=== PATIENT | male | born 1980 | race Caucasian/White ===

== ENCOUNTER 2016-05-14 09:52 | Emergency (ER) | payer MEDICARE ==
--- NOTE | 2016-05-14 10:37 | EDDOCDS ---
Nurse's Notes [facility] Name: Adair Paige Age: 35 yrs Sex: Male : 1980 Arrival Date: 05/14/2016 Time: 09:52 Bed TR7 Private MD: BRENDEN AGUIAR Diagnosis: Urinary tract infection, site not specified Presentation: 05/14 09:55 Presenting complaint: Patient states: symptoms of shivers, freezing, pain in upper left srm leg since last night. has been antibiotics for months for UTI's and now off it and boom symptoms come back. had botox shots and it helped for awhile. Adult Sepsis Screening: The patient does not have new or worsening altered mentation. Patient's respiratory rate is less than 22. Systolic blood pressure is greater than 100. Patient has a qSOFA score of 0- Negative Sepsis Screen. Suicide/Homicide risk assessment- the patient denies having any suicidal and/or homicidal ideations and does not present with any other emotional, behavioral or mental health complaints. Status: Patient is not a client service manager or dependent. Transition of care: patient was not received from another setting of care. 09:55 Acuity: PETER Level 3 [facility] 09:55 Method Of Arrival: Wheelchair [facility] Triage Assessment: 09:59 General: Appears in no apparent distress, Behavior is appropriate for age, cooperative. srm Pain: Denies pain. HIV screening NA for this visit Offered previously. Historical: - Allergies: no known allergies; - Home Meds: 1. Gabapentin 1000 mg Oral four times a day 2. Crestor 10 mg Oral tab 1 tab once daily 3. warfarin 5 mg Oral tab 1 tab once daily mon - thurs 4. warfarin 10 mg Oral tab 1 tab once daily thu-thu 5. niacin 1,000 mg Oral Tb24 2 tabs nightly 6. 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 - Family history: Not pertinent. - : The pt / caregiver states he / she is on anticoagulants: coumadin. Home medication list is obtained from the patient. - Exposure Risk Screening:: None identified. Screenin:33 Screening information is obtained from the patient. Fall risk: No risks identified. srm Assistance ADL's: requires no assistance with activities of daily living. Abuse/DV Screen: The patient / caregiver reports he/she is: not in a situation that causes fear, pain or injury. Nutritional screening: No deficits noted. Advance Directives: There is no active DNR order. home support is adequate. Assessment: 10:33 General: Appears in no apparent distress, Behavior is appropriate for age, cooperative. srm Neurological: No deficits noted. Respiratory: No deficits noted. GI: No deficits noted. Derm: No deficits noted. Vital Signs: 09:54 BP 132 / 77; Pulse 120; Resp 18 S; Temp 97.1; Pulse Ox 94% on R/A; Weight 120.66 kg dd6 (R); Height 5 ft. 9 in. (175.26 cm) (R); 09:54 Body Mass Index 39.28 (120.66 kg, 175.26 cm) dd6 Vitals: 09:54 Log In Time: May 14, 2016 at 09:52. dd6 ED Course: 09:53 Patient visited by Jovon Herrera PCA. dd6 09:53 Patient moved to Waiting dd6 09:54 BRENDEN AGUIAR is Private Physician. dd6 09:55 Patient moved to Pre RCE dd6 09:57 Triage Initiated srm 10:00 Patient moved to Triage 2 srm 10:08 UA Sent. ct3 10:08 Urine Culture Sent. ct3 10:19 Ayanna Ramirez PA-C is PHCP. dt4 10:19 Niurka Arevalo MD is Attending Physician. dt4 10:19 Patient visited by Ayanna Ramirez PA-C. dt4 10:27 BRENDEN AGUIAR is Referral Physician. dt4 10:32 Patient moved to TR7 ct3 10:33 The patient / caregiver is instructed regarding the plan of care and ED course. srm Accompanied by Friend, Patient has correct armband on for positive identification. 10:33 No IV's were initiated during this patient's visit. No procedures done that require srm assistance. Order Results: Lab Order: UA; SPEC'M 05/14/16 10:08 Test: APPEARANCE, URINE; Value: HAZY; Range: CLEAR; Status: F Test: COLOR, URINE; Value: YELLOW; Range: YELLOW; Status: F Test: PH,URINE; Value: 7.0; Range: 5.0-9.0; Units: UNITS; Status: F Test: SPECIFIC GRAVITY URINE AUTO; Value: 1.027; Range: 1.002-1.035; Status: F Test: PROTEIN, URINE AUTO; Value: 1+; Range: NEGATIVE; Abnormal: Above high normal; Units: mg/dL; Status: F Test: GLUCOSE, URINE (UA) AUTO; Value: NEGATIVE; Range: NEGATIVE; Units: mg/dL; Status: F Test: KETONE, URINE AUTO; Value: NEGATIVE; Range: NEGATIVE; Units: mg/dL; Status: F Test: UROBILINOGEN, URINE AUTO; Value: 2.0; Range: 0.0-2.0; Abnormal: Above high normal; Units: mg/dL; Status: F Test: BILIRUBIN, URINE AUTO; Value: NEGATIVE; Range: NEGATIVE; Status: F Test: NITRITE, URINE AUTO; Value: NEGATIVE; Range: NEGATIVE; Status: F Test: LEUKOCYTE ESTERASE, URINE AUTO; Value: 1+; Range: NEGATIVE; Abnormal: Above high normal; Status: F Test: BLOOD, URINE BLOOD; Value: NEGATIVE; Range: NEGATIVE; Status: F Test: WBC, URINE AUTO; Value: 33; Range: 0-3; Abnormal: Above high normal; Units: /HPF; Status: F Test: RBC, URINE AUTO; Value: 3; Range: 0-3; Units: /HPF; Status: F Test: BACTERIA, URINE AUTO; Value: 1+; Range: NEGATIVE; Abnormal: Above high normal; Status: F Test: SQUAMOUS EPITHELIAL CELL UR AU; Value: 1; Range: 0-6; Units: /HPF; Status: F Test: MUCUS, URINE; Value: SMALL; Range: NEGATIVE; Status: F Test: HYALINE CAST, URINE AUTO; Value: 0; Range: 0-1; Units: /LPF; Status: F Outcome: 10:28 Discharge ordered by Provider. dt4 10:33 Discharge Assessment: Patient awake, alert and oriented x 3. No cognitive and/or srm functional deficits noted. Patient verbalized understanding of disposition instructions. patient administered narcotics - no. The following High Risk Discharge criteria are identified: None. Discharged to home via wheelchair, with friend. Condition: good Condition: stable. Discharge instructions given to patient, Instructed on discharge instructions, follow up and referral plans. medication usage, Demonstrated understanding of instructions, medications, Pt was receptive of discharge instructions/ teaching. Prescriptions given X 1. No special radiology studies were completed. Property sent home with patient. 10:35 Patient left the ED. srm Signatures: Judy Castro, RN RN Jovon Dunham, VISCOSITY INSPECTOR VISCOSITY INSPECTOR dd6 Marlena Slater, VISCOSITY INSPECTOR VISCOSITY INSPECTOR ct3 Ayanna Ramirez, PAJessicaC PA-C dt4 Corrections: (The following items were deleted from the chart) 10:00 09:59 PSHx: spunal fusion; srm srm MTDD
--- NOTE | 2016-05-14 10:37 | EDDOCDS ---
Physician Documentation [facility] Name: Adair Paige Age: 35 yrs Sex: Male : 1980 Arrival Date: 05/14/2016 Time: 09:52 Bed TR7 Private MD: BRENDEN AGUIAR Disposition: 05/14/16 10:28 Discharged to Home/Self Care. Impression: Urinary tract infection, site not specified. - Condition is Stable. - Discharge Instructions: Urinary Tract Infection. - Prescriptions for Macrobid 100 mg Oral Capsule - take 100 milligram by ORAL route every 12 hours for 10 days; 20 capsule. - Medication Reconciliation, Local Pharmacy Hours form. - Follow up: Emergency Department; When: As needed; Reason: Worsening of conditions. Follow up: BRENDEN AGUIAR; When: call office to ask about your shipment of antibiotics; Reason: Recheck today's complaints, Continuance of care. - Problem is new. - Symptoms are unchanged. Historical: - Allergies: no known allergies; - Home Meds: 1. Gabapentin 1000 mg Oral four times a day 2. Crestor 10 mg Oral tab 1 tab once daily 3. warfarin 5 mg Oral tab 1 tab once daily thu - 4. warfarin 10 mg Oral tab 1 tab once daily thu-thu 5. niacin 1,000 mg Oral Tb24 2 tabs nightly 6. 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 - Family history: Not pertinent. - : The pt / caregiver states he / she is on anticoagulants: coumadin. Home medication list is obtained from the patient. - Exposure Risk Screening:: None identified. Vital Signs: 05/14 09:54 BP 132 / 77; Pulse 120; Resp 18 S; Temp 97.1; Pulse Ox 94% on R/A; Weight 120.66 kg / dd6 266.01 lbs (R); Height 5 ft. 9 in. (175.26 cm) (R); 09:54 Body Mass Index 39.28 (120.66 kg, 175.26 cm) dd6 MDM: 10:03 Urine Culture Ordered. EDMS 10:03 UA Ordered. EDMS 10:33 Financial registration complete. lg Signatures: Dispatcher [employer] Judy Evans RN RN srm Ava Degroot, Reg Reg lg Ayanna Ramirez PA-C PA-C dt4 The chart was reviewed and I authenticate all verbal orders and agree with the evaluation and treatment provided.Corrections: (The following items were deleted from the chart) 10:00 09:59 PSHx: spunal fusion; srm srm MTDD
--- NOTE | 2016-05-16 11:36 | EDDOCDS ---
Physician Documentation [facility] Name: Adair Paige Age: 35 yrs Sex: Male : 1980 Arrival Date: 05/14/2016 Time: 09:52 Bed TR7 Private MD: BRENDEN AGUIAR Disposition: 05/14/16 10:28 Discharged to Home/Self Care. Impression: Urinary tract infection, site not specified. - Condition is Stable. - Discharge Instructions: Urinary Tract Infection. - Prescriptions for Macrobid 100 mg Oral Capsule - take 100 milligram by ORAL route every 12 hours for 10 days; 20 capsule. - Medication Reconciliation, Local Pharmacy Hours form. - Follow up: Emergency Department; When: As needed; Reason: Worsening of conditions. Follow up: BRENDEN AGUIAR; When: call office to ask about your shipment of antibiotics; Reason: Recheck today's complaints, Continuance of care. - Problem is new. - Symptoms are unchanged. Historical: - Allergies: no known allergies; - Home Meds: 1. Gabapentin 1000 mg Oral four times a day 2. Crestor 10 mg Oral tab 1 tab once daily 3. warfarin 5 mg Oral tab 1 tab once daily thu - 4. warfarin 10 mg Oral tab 1 tab once daily thu-thu 5. niacin 1,000 mg Oral Tb24 2 tabs nightly 6. 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 - Family history: Not pertinent. - : The pt / caregiver states he / she is on anticoagulants: coumadin. Home medication list is obtained from the patient. - Exposure Risk Screening:: None identified. Vital Signs: 05/14 09:54 BP 132 / 77; Pulse 120; Resp 18 S; Temp 97.1; Pulse Ox 94% on R/A; Weight 120.66 kg / dd6 266.01 lbs (R); Height 5 ft. 9 in. (175.26 cm) (R); 09:54 Body Mass Index 39.28 (120.66 kg, 175.26 cm) dd6 MDM: 10:03 Urine Culture Ordered. EDMS 10:03 UA Ordered. EDMS 10:33 Financial registration complete. lg 12:03 [facility] Payment Agreement was scanned into [employer] and attached to record. lg 15:01 T-Sheet-- Draft Copy was scanned into [employer] and attached to record. gb Signatures: Dispatcher [employer] EDMS Judy Castro RN RN srm Mary Aldridge, Reg Reg gb Ava Degroot, Reg Reg lg Ayanna Ramirez, THAI ANDRE dt4 The chart was reviewed and I authenticate all verbal orders and agree with the evaluation and treatment provided.Corrections: (The following items were deleted from the chart) 10:00 09:59 PSHx: spunal fusion; srm srm Attachments: 12:03 [facility] Payment Agreement lg 15:01 T-Sheet-- Draft Copy gb Chart Complete MTDD
--- NOTE | 2016-05-16 11:36 | EDDOCDS ---
Nurse's Notes [facility] Name: Adair Paige Age: 35 yrs Sex: Male : 1980 Arrival Date: 05/14/2016 Time: 09:52 Bed TR7 Private MD: BRENDEN AGUIAR Diagnosis: Urinary tract infection, site not specified Presentation: 05/14 09:55 Presenting complaint: Patient states: symptoms of shivers, freezing, pain in upper left srm leg since last night. has been antibiotics for months for UTI's and now off it and boom symptoms come back. had botox shots and it helped for awhile. Adult Sepsis Screening: The patient does not have new or worsening altered mentation. Patient's respiratory rate is less than 22. Systolic blood pressure is greater than 100. Patient has a qSOFA score of 0- Negative Sepsis Screen. Suicide/Homicide risk assessment- the patient denies having any suicidal and/or homicidal ideations and does not present with any other emotional, behavioral or mental health complaints. Status: Patient is not a public address servicer or dependent. Transition of care: patient was not received from another setting of care. 09:55 Acuity: PETER Level 3 [facility] 09:55 Method Of Arrival: Wheelchair [facility] Triage Assessment: 09:59 General: Appears in no apparent distress, Behavior is appropriate for age, cooperative. srm Pain: Denies pain. HIV screening NA for this visit Offered previously. Historical: - Allergies: no known allergies; - Home Meds: 1. Gabapentin 1000 mg Oral four times a day 2. Crestor 10 mg Oral tab 1 tab once daily 3. warfarin 5 mg Oral tab 1 tab once daily mon - thurs 4. warfarin 10 mg Oral tab 1 tab once daily thu-thu 5. niacin 1,000 mg Oral Tb24 2 tabs nightly 6. 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 - Family history: Not pertinent. - : The pt / caregiver states he / she is on anticoagulants: coumadin. Home medication list is obtained from the patient. - Exposure Risk Screening:: None identified. Screenin:33 Screening information is obtained from the patient. Fall risk: No risks identified. srm Assistance ADL's: requires no assistance with activities of daily living. Abuse/DV Screen: The patient / caregiver reports he/she is: not in a situation that causes fear, pain or injury. Nutritional screening: No deficits noted. Advance Directives: There is no active DNR order. home support is adequate. Assessment: 10:33 General: Appears in no apparent distress, Behavior is appropriate for age, cooperative. srm Neurological: No deficits noted. Respiratory: No deficits noted. GI: No deficits noted. Derm: No deficits noted. Vital Signs: 09:54 BP 132 / 77; Pulse 120; Resp 18 S; Temp 97.1; Pulse Ox 94% on R/A; Weight 120.66 kg dd6 (R); Height 5 ft. 9 in. (175.26 cm) (R); 09:54 Body Mass Index 39.28 (120.66 kg, 175.26 cm) dd6 Vitals: 09:54 Log In Time: May 14, 2016 at 09:52. dd6 ED Course: 09:53 Patient visited by Jovon Herrera PCA. dd6 09:53 Patient moved to Waiting dd6 09:54 BRENDEN AGUIAR is Private Physician. dd6 09:55 Patient moved to Pre RCE dd6 09:57 Triage Initiated srm 10:00 Patient moved to Triage 2 srm 10:08 UA Sent. ct3 10:08 Urine Culture Sent. ct3 10:19 Ayanna Ramirez PA-C is PHCP. dt4 10:19 Niurka Arevalo MD is Attending Physician. dt4 10:19 Patient visited by Ayanna Ramirez PA-C. dt4 10:27 BRENDEN AGUIAR is Referral Physician. dt4 10:32 Patient moved to TR7 ct3 10:33 The patient / caregiver is instructed regarding the plan of care and ED course. srm Accompanied by Friend, Patient has correct armband on for positive identification. 10:33 No IV's were initiated during this patient's visit. No procedures done that require srm assistance. 12:01 Patient name changed from Naif\\S\Alidaiazrussell\S\ to Adair\Sarita\ \S\Alidaiazza. EDMS 12:03 [facility] Payment Agreement was scanned into [employer] and attached to record. lg 15:01 T-Sheet-- Draft Copy was scanned into [employer] and attached to record. gb Order Results: Lab Order: Urine Culture; SPEC'M 05/14/16 10:08 Test: URINE CULTURE; Value: ORGANISM 1: ESCHERICHIA COLI; Status: F Test: URINE CULTURE; Value: ESCHERICHIA COLI; Status: F Test: URINE CULTURE; Value: COLONY COUNT CFU/ml >100,000; Status: F Test: URINE CULTURE; Value: STREP AGALACTIAE GROUP B; Status: F Test: URINE CULTURE; Value: COLONY COUNT CFU/ml >100,000; Status: F Test: URINE CULTURE; Value: ORGANISM 2: STREP AGALACTIAE GROUP B; Status: F Test: URINE CULTURE; Value: ESCHERICHIA COLI; Status: F Test: URINE CULTURE; Value: COLONY COUNT CFU/ml >100,000; Status: F Test: URINE CULTURE; Value: STREP AGALACTIAE GROUP B; Status: F Test: URINE CULTURE; Value: COLONY COUNT CFU/ml >100,000; Status: F Test: URINE CULTURE; Value: GRAM NEG SENSI - VITEK 80; Status: F Test: URINE CULTURE; Value: Method: VIT2; Status: F Test: URINE CULTURE; Value: EXTD BRD SPCTRM BETA LACTAMASE -; Status: F Test: URINE CULTURE; Value: TRIMETHOPRIM/SULFAMETHOXAZOLE <=20 S; Status: F Test: URINE CULTURE; Value: AMPICILLIN 16 I; Status: F Test: URINE CULTURE; Value: GENTAMICIN <=1 S; Status: F Test: URINE CULTURE; Value: NITROFURANTOIN <=16 S; Status: F Test: URINE CULTURE; Value: CEFAZOLIN <=4 S; Status: F Test: URINE CULTURE; Value: LEVOFLOXACIN <=0.12 S; Status: F Test: URINE CULTURE; Value: TOBRAMYCIN <=1 S; Status: F Test: URINE CULTURE; Value: CEFTRIAXONE <=1 S; Status: F Test: URINE CULTURE; Value: CEFTAZIDIME <=1 S; Status: F Test: URINE CULTURE; Value: AMPICILLIN/SULBACTAM 4 I; Status: F Test: URINE CULTURE; Value: PIPERACILLIN/TAZOBACTAM <=4 S; Status: F Test: URINE CULTURE; Value: AZTREONAM <=1 S; Status: F Test: URINE CULTURE; Value: ERTAPENEM <=0.5 S; Status: F Test: URINE CULTURE; Value: MEROPENEM <=0.25 S; Status: F Test: URINE CULTURE; Value: TIGECYCLINE <=0.5 S; Status: F Test: URINE CULTURE; Value: CEFEPIME <=1 S; Status: F Test: URINE CULTURE; Value: GRAM POS SENSI - ST02; Status: F Test: URINE CULTURE; Value: Method: VIT2; Status: F Test: URINE CULTURE; Value: ICR (INDUCIBLE CC RESISTANCE) -; Status: F Test: URINE CULTURE; Value: TETRACYCLINE >=16 R; Status: F Test: URINE CULTURE; Value: PENICILLIN G <=0.06 S; Status: F Test: URINE CULTURE; Value: TRIMETHOPRIM/SULFAMETHOXAZOLE <=10 S; Status: F Test: URINE CULTURE; Value: AMPICILLIN <=0.25 S; Status: F Test: URINE CULTURE; Value: ERYTHROMYCIN 4 R; Status: F Test: URINE CULTURE; Value: LEVOFLOXACIN 0.5 S; Status: F Test: URINE CULTURE; Value: VANCOMYCIN 0.5 S; Status: F Test: URINE CULTURE; Value: MOXIFLOXACIN (AVELOX) 0.12 S; Status: F Test: URINE CULTURE; Value: CEFTRIAXONE <=0.12 S; Status: F Test: URINE CULTURE; Value: CEFOTAXIME <=0.12 S; Status: F Lab Order: UA; SPEC'M 05/14/16 10:08 Test: APPEARANCE, URINE; Value: HAZY; Range: CLEAR; Status: F Test: COLOR, URINE; Value: YELLOW; Range: YELLOW; Status: F Test: PH,URINE; Value: 7.0; Range: 5.0-9.0; Units: UNITS; Status: F Test: SPECIFIC GRAVITY URINE AUTO; Value: 1.027; Range: 1.002-1.035; Status: F Test: PROTEIN, URINE AUTO; Value: 1+; Range: NEGATIVE; Abnormal: Above high normal; Units: mg/dL; Status: F Test: GLUCOSE, URINE (UA) AUTO; Value: NEGATIVE; Range: NEGATIVE; Units: mg/dL; Status: F Test: KETONE, URINE AUTO; Value: NEGATIVE; Range: NEGATIVE; Units: mg/dL; Status: F Test: UROBILINOGEN, URINE AUTO; Value: 2.0; Range: 0.0-2.0; Abnormal: Above high normal; Units: mg/dL; Status: F Test: BILIRUBIN, URINE AUTO; Value: NEGATIVE; Range: NEGATIVE; Status: F Test: NITRITE, URINE AUTO; Value: NEGATIVE; Range: NEGATIVE; Status: F Test: LEUKOCYTE ESTERASE, URINE AUTO; Value: 1+; Range: NEGATIVE; Abnormal: Above high normal; Status: F Test: BLOOD, URINE BLOOD; Value: NEGATIVE; Range: NEGATIVE; Status: F Test: WBC, URINE AUTO; Value: 33; Range: 0-3; Abnormal: Above high normal; Units: /HPF; Status: F Test: RBC, URINE AUTO; Value: 3; Range: 0-3; Units: /HPF; Status: F Test: BACTERIA, URINE AUTO; Value: 1+; Range: NEGATIVE; Abnormal: Above high normal; Status: F Test: SQUAMOUS EPITHELIAL CELL UR AU; Value: 1; Range: 0-6; Units: /HPF; Status: F Test: MUCUS, URINE; Value: SMALL; Range: NEGATIVE; Status: F Test: HYALINE CAST, URINE AUTO; Value: 0; Range: 0-1; Units: /LPF; Status: F Outcome: 10:28 Discharge ordered by Provider. dt4 10:33 Discharge Assessment: Patient awake, alert and oriented x 3. No cognitive and/or srm functional deficits noted. Patient verbalized understanding of disposition instructions. patient administered narcotics - no. The following High Risk Discharge criteria are identified: None. Discharged to home via wheelchair, with friend. Condition: good Condition: stable. Discharge instructions given to patient, Instructed on discharge instructions, follow up and referral plans. medication usage, Demonstrated understanding of instructions, medications, Pt was receptive of discharge instructions/ teaching. Prescriptions given X 1. No special radiology studies were completed. Property sent home with patient. 10:35 Patient left the ED. srm Signatures: Dispatcher [employer] Judy Castro RN RN srm Mary Aldridge, Reg Reg gb Ava Degroot, Reg Reg lg Jovon Herrera, ECONOMICS TEACHER ECONOMICS TEACHER dd6 Marlena Slater, ECONOMICS TEACHER ECONOMICS TEACHER ct3 Ayanna Ramirez, THAI PAAmy dt4 Corrections: (The following items were deleted from the chart) 10:00 09:59 PSHx: spunal fusion; srm srm Chart Complete MTDD
--- NOTE | 2016-05-16 11:36 | EDDOCDS ---
Physician Documentation [facility] Name: Adair Paige Age: 35 yrs Sex: Male : 1980 Arrival Date: 05/14/2016 Time: 09:52 Bed TR7 Private MD: BRENDEN AGUIAR Disposition: 05/14/16 10:28 Discharged to Home/Self Care. Impression: Urinary tract infection, site not specified. - Condition is Stable. - Discharge Instructions: Urinary Tract Infection. - Prescriptions for Macrobid 100 mg Oral Capsule - take 100 milligram by ORAL route every 12 hours for 10 days; 20 capsule. - Medication Reconciliation, Local Pharmacy Hours form. - Follow up: Emergency Department; When: As needed; Reason: Worsening of conditions. Follow up: BRENDEN AGUIAR; When: call office to ask about your shipment of antibiotics; Reason: Recheck today's complaints, Continuance of care. - Problem is new. - Symptoms are unchanged. Historical: - Allergies: no known allergies; - Home Meds: 1. Gabapentin 1000 mg Oral four times a day 2. Crestor 10 mg Oral tab 1 tab once daily 3. warfarin 5 mg Oral tab 1 tab once daily thu - 4. warfarin 10 mg Oral tab 1 tab once daily thu-thu 5. niacin 1,000 mg Oral Tb24 2 tabs nightly 6. 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 - Family history: Not pertinent. - : The pt / caregiver states he / she is on anticoagulants: coumadin. Home medication list is obtained from the patient. - Exposure Risk Screening:: None identified. Vital Signs: 05/14 09:54 BP 132 / 77; Pulse 120; Resp 18 S; Temp 97.1; Pulse Ox 94% on R/A; Weight 120.66 kg / dd6 266.01 lbs (R); Height 5 ft. 9 in. (175.26 cm) (R); 09:54 Body Mass Index 39.28 (120.66 kg, 175.26 cm) dd6 MDM: 10:03 Urine Culture Ordered. EDMS 10:03 UA Ordered. EDMS 10:33 Financial registration complete. lg 12:03 [facility] Payment Agreement was scanned into [email or web address] and attached to record. lg 15:01 T-Sheet-- Draft Copy was scanned into [email or web address] and attached to record. gb Signatures: Dispatcher [employer] EDMS Judy Castro RN RN srm Mary Aldridge, Reg Reg gb Ava Degroot, Reg Reg lg Ayanna Ramirez, THAI ANDRE dt4 The chart was reviewed and I authenticate all verbal orders and agree with the evaluation and treatment provided.Corrections: (The following items were deleted from the chart) 10:00 09:59 PSHx: spunal fusion; srm srm Attachments: 12:03 [facility] Payment Agreement lg 15:01 T-Sheet-- Draft Copy gb Chart Complete MTDD
--- NOTE | 2016-05-16 18:14 | EDDOCDS ---
Physician Documentation [facility] Name: Adair Paige Age: 35 yrs Sex: Male : 1980 Arrival Date: 05/14/2016 Time: 09:52 Bed TR7 Private MD: BRENDEN AGUIAR Disposition: 05/14/16 10:28 Discharged to Home/Self Care. Impression: Urinary tract infection, site not specified. - Condition is Stable. - Discharge Instructions: Urinary Tract Infection. - Prescriptions for Macrobid 100 mg Oral Capsule - take 100 milligram by ORAL route every 12 hours for 10 days; 20 capsule. - Medication Reconciliation, Local Pharmacy Hours form. - Follow up: Emergency Department; When: As needed; Reason: Worsening of conditions. Follow up: BRENDEN AGUIAR; When: call office to ask about your shipment of antibiotics; Reason: Recheck today's complaints, Continuance of care. - Problem is new. - Symptoms are unchanged. Historical: - Allergies: no known allergies; - Home Meds: 1. Gabapentin 1000 mg Oral four times a day 2. Crestor 10 mg Oral tab 1 tab once daily 3. warfarin 5 mg Oral tab 1 tab once daily thu - 4. warfarin 10 mg Oral tab 1 tab once daily thu-thu 5. niacin 1,000 mg Oral Tb24 2 tabs nightly 6. 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 - Family history: Not pertinent. - : The pt / caregiver states he / she is on anticoagulants: coumadin. Home medication list is obtained from the patient. - Exposure Risk Screening:: None identified. Vital Signs: 05/14 09:54 BP 132 / 77; Pulse 120; Resp 18 S; Temp 97.1; Pulse Ox 94% on R/A; Weight 120.66 kg / dd6 266.01 lbs (R); Height 5 ft. 9 in. (175.26 cm) (R); 09:54 Body Mass Index 39.28 (120.66 kg, 175.26 cm) dd6 MDM: 10:03 Urine Culture Ordered. EDMS 10:03 UA Ordered. EDMS 10:33 Financial registration complete. lg 12:03 [facility] Payment Agreement was scanned into [employer] and attached to record. lg 15:01 T-Sheet-- Draft Copy was scanned into [employer] and attached to record. gb Signatures: Dispatcher [employer] EDMS Judy Castro RN RN srm Mary Aldridge, Reg Reg gb Ava Degroot, Reg Reg lg Ayanna Ramirez, THAI ANDRE dt4 The chart was reviewed and I authenticate all verbal orders and agree with the evaluation and treatment provided.Corrections: (The following items were deleted from the chart) 10:00 09:59 PSHx: spunal fusion; srm srm Attachments: 12:03 [facility] Payment Agreement lg 15:01 T-Sheet-- Draft Copy gb Chart Complete MTDD
--- NOTE | 2016-05-16 18:14 | EDDOCDS ---
Physician Documentation [facility] Name: Adair Paige Age: 35 yrs Sex: Male : 1980 Arrival Date: 05/14/2016 Time: 09:52 Bed TR7 Private MD: BRENDEN AGUIAR Disposition: 05/14/16 10:28 Discharged to Home/Self Care. Impression: Urinary tract infection, site not specified. - Condition is Stable. - Discharge Instructions: Urinary Tract Infection. - Prescriptions for Macrobid 100 mg Oral Capsule - take 100 milligram by ORAL route every 12 hours for 10 days; 20 capsule. - Medication Reconciliation, Local Pharmacy Hours form. - Follow up: Emergency Department; When: As needed; Reason: Worsening of conditions. Follow up: BRENDEN AGUIAR; When: call office to ask about your shipment of antibiotics; Reason: Recheck today's complaints, Continuance of care. - Problem is new. - Symptoms are unchanged. Historical: - Allergies: no known allergies; - Home Meds: 1. Gabapentin 1000 mg Oral four times a day 2. Crestor 10 mg Oral tab 1 tab once daily 3. warfarin 5 mg Oral tab 1 tab once daily thu - 4. warfarin 10 mg Oral tab 1 tab once daily thu-thu 5. niacin 1,000 mg Oral Tb24 2 tabs nightly 6. 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 - Family history: Not pertinent. - : The pt / caregiver states he / she is on anticoagulants: coumadin. Home medication list is obtained from the patient. - Exposure Risk Screening:: None identified. Vital Signs: 05/14 09:54 BP 132 / 77; Pulse 120; Resp 18 S; Temp 97.1; Pulse Ox 94% on R/A; Weight 120.66 kg / dd6 266.01 lbs (R); Height 5 ft. 9 in. (175.26 cm) (R); 09:54 Body Mass Index 39.28 (120.66 kg, 175.26 cm) dd6 MDM: 10:03 Urine Culture Ordered. EDMS 10:03 UA Ordered. EDMS 10:33 Financial registration complete. lg 12:03 [facility] Payment Agreement was scanned into [employer] and attached to record. lg 15:01 T-Sheet-- Draft Copy was scanned into [email or web address] and attached to record. gb Signatures: Dispatcher [employer] EDMS Judy Castro RN RN srm Mary Aldridge, Reg Reg gb Ava Degroot, Reg Reg lg Ayanna Ramirez, THAI ANDRE dt4 The chart was reviewed and I authenticate all verbal orders and agree with the evaluation and treatment provided.Corrections: (The following items were deleted from the chart) 10:00 09:59 PSHx: spunal fusion; srm srm Attachments: 12:03 [facility] Payment Agreement lg 15:01 T-Sheet-- Draft Copy gb Chart Complete MTDD
--- NOTE | 2016-05-16 18:15 | EDDOCDS ---
[facility] Name: Adair Paige Age: 35 yrs Sex: Male : 1980 Arrival Date: 05/14/2016 Time: 09:52 Bed TR7 Private MD: BRENDEN AGUIAR Diagnosis: Urinary tract infection, site not specified Presentation: 05/14 09:55 Presenting complaint: Patient states: symptoms of shivers, freezing, pain in upper left srm leg since last night. has been antibiotics for months for UTI's and now off it and boom symptoms come back. had botox shots and it helped for awhile. Adult Sepsis Screening: The patient does not have new or worsening altered mentation. Patient's respiratory rate is less than 22. Systolic blood pressure is greater than 100. Patient has a qSOFA score of 0- Negative Sepsis Screen. Suicide/Homicide risk assessment- the patient denies having any suicidal and/or homicidal ideations and does not present with any other emotional, behavioral or mental health complaints. Status: Patient is not a vehicle service agent or dependent. Transition of care: patient was not received from another setting of care. 09:55 Acuity: PETER Level 3 [facility] 09:55 Method Of Arrival: Wheelchair [facility] Triage Assessment: 09:59 General: Appears in no apparent distress, Behavior is appropriate for age, cooperative. srm Pain: Denies pain. HIV screening NA for this visit Offered previously. Historical: - Allergies: no known allergies; - Home Meds: 1. Gabapentin 1000 mg Oral four times a day 2. Crestor 10 mg Oral tab 1 tab once daily 3. warfarin 5 mg Oral tab 1 tab once daily mon - thurs 4. warfarin 10 mg Oral tab 1 tab once daily thu-thu 5. niacin 1,000 mg Oral Tb24 2 tabs nightly 6. 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 - Family history: Not pertinent. - : The pt / caregiver states he / she is on anticoagulants: coumadin. Home medication list is obtained from the patient. - Exposure Risk Screening:: None identified. Screenin:33 Screening information is obtained from the patient. Fall risk: No risks identified. srm Assistance ADL's: requires no assistance with activities of daily living. Abuse/DV Screen: The patient / caregiver reports he/she is: not in a situation that causes fear, pain or injury. Nutritional screening: No deficits noted. Advance Directives: There is no active DNR order. home support is adequate. Assessment: 10:33 General: Appears in no apparent distress, Behavior is appropriate for age, cooperative. srm Neurological: No deficits noted. Respiratory: No deficits noted. GI: No deficits noted. Derm: No deficits noted. Vital Signs: 09:54 BP 132 / 77; Pulse 120; Resp 18 S; Temp 97.1; Pulse Ox 94% on R/A; Weight 120.66 kg dd6 (R); Height 5 ft. 9 in. (175.26 cm) (R); 09:54 Body Mass Index 39.28 (120.66 kg, 175.26 cm) dd6 Vitals: 09:54 Log In Time: May 14, 2016 at 09:52. dd6 ED Course: 09:53 Patient visited by Jovon Herrera PCA. dd6 09:53 Patient moved to Waiting dd6 09:54 BRENDEN AGUIAR is Private Physician. dd6 09:55 Patient moved to Pre RCE dd6 09:57 Triage Initiated srm 10:00 Patient moved to Triage 2 srm 10:08 UA Sent. ct3 10:08 Urine Culture Sent. ct3 10:19 Ayanna Ramirez PA-C is PHCP. dt4 10:19 Niurka Arevalo MD is Attending Physician. dt4 10:19 Patient visited by Ayanna Ramirez PA-C. dt4 10:27 BRENDEN AGUIAR is Referral Physician. dt4 10:32 Patient moved to TR7 ct3 10:33 The patient / caregiver is instructed regarding the plan of care and ED course. srm Accompanied by Friend, Patient has correct armband on for positive identification. 10:33 No IV's were initiated during this patient's visit. No procedures done that require srm assistance. 12:01 Patient name changed from Naif\\S\Alidaiazrussell\S\ to Adair\Sarita\ \S\Alidaiazza. EDMS 12:03 [facility] was scanned into [x+1] and attached to record. lg 15:01 T-Sheet-- Draft Copy was scanned into [x+1] and attached to record. gb Order Results: Lab Order: Urine Culture; SPEC'M 05/14/16 10:08 Test: URINE CULTURE; Value: ORGANISM 1: ESCHERICHIA COLI; Status: F Test: URINE CULTURE; Value: ESCHERICHIA COLI; Status: F Test: URINE CULTURE; Value: COLONY COUNT CFU/ml >100,000; Status: F Test: URINE CULTURE; Value: STREP AGALACTIAE GROUP B; Status: F Test: URINE CULTURE; Value: COLONY COUNT CFU/ml >100,000; Status: F Test: URINE CULTURE; Value: ORGANISM 2: STREP AGALACTIAE GROUP B; Status: F Test: URINE CULTURE; Value: ESCHERICHIA COLI; Status: F Test: URINE CULTURE; Value: COLONY COUNT CFU/ml >100,000; Status: F Test: URINE CULTURE; Value: STREP AGALACTIAE GROUP B; Status: F Test: URINE CULTURE; Value: COLONY COUNT CFU/ml >100,000; Status: F Test: URINE CULTURE; Value: GRAM NEG SENSI - VITEK 80; Status: F Test: URINE CULTURE; Value: Method: VIT2; Status: F Test: URINE CULTURE; Value: EXTD BRD SPCTRM BETA LACTAMASE -; Status: F Test: URINE CULTURE; Value: TRIMETHOPRIM/SULFAMETHOXAZOLE <=20 S; Status: F Test: URINE CULTURE; Value: AMPICILLIN 16 I; Status: F Test: URINE CULTURE; Value: GENTAMICIN <=1 S; Status: F Test: URINE CULTURE; Value: NITROFURANTOIN <=16 S; Status: F Test: URINE CULTURE; Value: CEFAZOLIN <=4 S; Status: F Test: URINE CULTURE; Value: LEVOFLOXACIN <=0.12 S; Status: F Test: URINE CULTURE; Value: TOBRAMYCIN <=1 S; Status: F Test: URINE CULTURE; Value: CEFTRIAXONE <=1 S; Status: F Test: URINE CULTURE; Value: CEFTAZIDIME <=1 S; Status: F Test: URINE CULTURE; Value: AMPICILLIN/SULBACTAM 4 I; Status: F Test: URINE CULTURE; Value: PIPERACILLIN/TAZOBACTAM <=4 S; Status: F Test: URINE CULTURE; Value: AZTREONAM <=1 S; Status: F Test: URINE CULTURE; Value: ERTAPENEM <=0.5 S; Status: F Test: URINE CULTURE; Value: MEROPENEM <=0.25 S; Status: F Test: URINE CULTURE; Value: TIGECYCLINE <=0.5 S; Status: F Test: URINE CULTURE; Value: CEFEPIME <=1 S; Status: F Test: URINE CULTURE; Value: GRAM POS SENSI - ST02; Status: F Test: URINE CULTURE; Value: Method: VIT2; Status: F Test: URINE CULTURE; Value: ICR (INDUCIBLE CC RESISTANCE) -; Status: F Test: URINE CULTURE; Value: TETRACYCLINE >=16 R; Status: F Test: URINE CULTURE; Value: PENICILLIN G <=0.06 S; Status: F Test: URINE CULTURE; Value: TRIMETHOPRIM/SULFAMETHOXAZOLE <=10 S; Status: F Test: URINE CULTURE; Value: AMPICILLIN <=0.25 S; Status: F Test: URINE CULTURE; Value: ERYTHROMYCIN 4 R; Status: F Test: URINE CULTURE; Value: LEVOFLOXACIN 0.5 S; Status: F Test: URINE CULTURE; Value: VANCOMYCIN 0.5 S; Status: F Test: URINE CULTURE; Value: MOXIFLOXACIN (AVELOX) 0.12 S; Status: F Test: URINE CULTURE; Value: CEFTRIAXONE <=0.12 S; Status: F Test: URINE CULTURE; Value: CEFOTAXIME <=0.12 S; Status: F Lab Order: UA; SPEC'M 05/14/16 10:08 Test: APPEARANCE, URINE; Value: HAZY; Range: CLEAR; Status: F Test: COLOR, URINE; Value: YELLOW; Range: YELLOW; Status: F Test: PH,URINE; Value: 7.0; Range: 5.0-9.0; Units: UNITS; Status: F Test: SPECIFIC GRAVITY URINE AUTO; Value: 1.027; Range: 1.002-1.035; Status: F Test: PROTEIN, URINE AUTO; Value: 1+; Range: NEGATIVE; Abnormal: Above high normal; Units: mg/dL; Status: F Test: GLUCOSE, URINE (UA) AUTO; Value: NEGATIVE; Range: NEGATIVE; Units: mg/dL; Status: F Test: KETONE, URINE AUTO; Value: NEGATIVE; Range: NEGATIVE; Units: mg/dL; Status: F Test: UROBILINOGEN, URINE AUTO; Value: 2.0; Range: 0.0-2.0; Abnormal: Above high normal; Units: mg/dL; Status: F Test: BILIRUBIN, URINE AUTO; Value: NEGATIVE; Range: NEGATIVE; Status: F Test: NITRITE, URINE AUTO; Value: NEGATIVE; Range: NEGATIVE; Status: F Test: LEUKOCYTE ESTERASE, URINE AUTO; Value: 1+; Range: NEGATIVE; Abnormal: Above high normal; Status: F Test: BLOOD, URINE BLOOD; Value: NEGATIVE; Range: NEGATIVE; Status: F Test: WBC, URINE AUTO; Value: 33; Range: 0-3; Abnormal: Above high normal; Units: /HPF; Status: F Test: RBC, URINE AUTO; Value: 3; Range: 0-3; Units: /HPF; Status: F Test: BACTERIA, URINE AUTO; Value: 1+; Range: NEGATIVE; Abnormal: Above high normal; Status: F Test: SQUAMOUS EPITHELIAL CELL UR AU; Value: 1; Range: 0-6; Units: /HPF; Status: F Test: MUCUS, URINE; Value: SMALL; Range: NEGATIVE; Status: F Test: HYALINE CAST, URINE AUTO; Value: 0; Range: 0-1; Units: /LPF; Status: F Outcome: 10:28 Discharge ordered by Provider. dt4 10:33 Discharge Assessment: Patient awake, alert and oriented x 3. No cognitive and/or srm functional deficits noted. Patient verbalized understanding of disposition instructions. patient administered narcotics - no. The following High Risk Discharge criteria are identified: None. Discharged to home via wheelchair, with friend. Condition: good Condition: stable. Discharge instructions given to patient, Instructed on discharge instructions, follow up and referral plans. medication usage, Demonstrated understanding of instructions, medications, Pt was receptive of discharge instructions/ teaching. Prescriptions given X 1. No special radiology studies were completed. Property sent home with patient. 10:35 Patient left the ED. srm Signatures: Dispatcher [employer] EDNE Judy Castro RN RN srm Mary Aldridge, Reg Reg gb Ava Degroot, Reg Reg lg Jovon Herrera, PRECISION ASSEMBLER BENCH PRECISION ASSEMBLER BENCH dd6 Marlena Slater, PRECISION ASSEMBLER BENCH PRECISION ASSEMBLER BENCH ct3 Ayanna Ramirez, THAI PAAmy dt4 Corrections: (The following items were deleted from the chart) 10:00 09:59 PSHx: spunal fusion; srm srm Chart Complete MTDD
== END 2016-05-14 10:35 | disposition home or self-care (01) ==
LOC: M ED 09:52
DX: N39.0 Urinary tract infection, site not specified (principal); E11.9 Type 2 diabetes mellitus without complications; G82.20 Paraplegia, unspecified; Z87.828 Personal history of other (healed) physical injury and trauma; Z86.718 Personal history of other venous thrombosis and embolism; Z86.711 Personal history of pulmonary embolism; Z79.899 Other long term (current) drug therapy; Z79.01 Long term (current) use of anticoagulants

== ENCOUNTER 2016-11-07 21:42 | Emergency (ER) | payer MEDICARE ==
[2016-11-07] MEDS ORDERED: GABA800T (21:53)
[2016-11-07] MEDS ORDERED: NITR100C2 (21:53)
[2016-11-07] MEDS ORDERED: WARF-22 (21:53)
[2016-11-07] MEDS ORDERED: WARF-23 (21:53)
[2016-11-07] MEDS ORDERED: ROSU10TA2 (21:53)
[2016-11-08] MEDS ORDERED: METAL LOCK LOOP XX ONE (00:13)
[2016-11-08 01:12] LABS: ANION GAP 7 MEQ/L (8-16); BLOOD UREA NITROGEN 16 MG/DL (7-18); CALCIUM LEVEL 9.5 MG/DL (8.5-10.1); CARBON DIOXIDE LEVEL 27 MEQ/L (21-32); CHLORIDE LEVEL 105 MEQ/L (98-107); CREATININE FOR GFR 0.71 MG/DL (0.70-1.30); GLOMERULAR FILTRATION RATE > 60.0 (>60); GLUCOSE, FASTING 84 MG/DL (70-105); POTASSIUM SERUM 4.1 MEQ/L (3.5-5.1); SODIUM LEVEL 139 MEQ/L (136-145)
[2016-11-08 01:19] LABS: BASO % 0.2 % (0.0-1.0); EOS # 0.1 K/mm3 (0.0-0.50); EOS % 0.5 % (0.0-3.0); INR 1.54; LARGE UNSTAINED CELL # 0.1 K/mm3 (0.0-0.4); LYMPH # 2.8 K/mm3 (1.5-4.5); LYMPH % 20.4 % (24.0-44.0); MEAN CORPUSCULAR HEMOGLOBIN 30.3 pg (27.0-33.0); MEAN CORPUSCULAR VOLUME 89.1 fl (80.0-96.0); MONO # 0.7 K/mm3 (0.0-0.8); MONO % 5.4 % (0.0-5.0); NEUTROPHILS # 9.7 K/mm3 (1.8-7.7); NEUTROPHILS % 72.5 % (36.0-66.0); PLATELET COUNT, AUTOMATED 325 k/mm3 (150-450); RED CELL DISTRIBUTION WIDTH 13.4 % (11.5-14.5); WHITE BLOOD COUNT 13.3 K/mm3 (4.0-10.0)
[2016-11-08 03:04] VITALS: BP 142/80
--- NOTE | 2016-11-08 06:59 | REP ---
Clinical: Trauma. Technique: AP and lateral views of the left tibia / fibula. Findings: Closed comminuted fracture involving the proximal fibular shaft and oblique fracture involving the distal tibial shaft noted along with advanced arthritic degenerative and possibly post traumatic degenerative changes at the knee and ankle joint. No subcutaneous emphysema. No radiodense foreign body. Impression: Acute closed fractures involving the proximal fibular shaft and distal tibial shaft. The Signed by Dionicio Simon MD 11/08/2016 06:50 A
--- NOTE | 2016-11-08 07:08 | REP ---
Clinical: Status post reduction. Technique: Portable AP and lateral views of the left tibia / fibula. Findings: The patient is status post reduction and casting. Fractures involving the proximal fibular shaft and distal tibial shaft are again identified along with arthritic/post traumatic degenerative changes to the knee and ankle joint. Impression: Status post reduction and casting. Signed by Dionicio Simon MD 11/08/2016 06:59 A
--- NOTE | 2016-11-10 08:50 | CR ---
DATE OF CONSULTATION: 11/07/2016 CHIEF COMPLAINT: Left tib-fib fracture. HISTORY OF PRESENT ILLNESS: This is a 36-year-old gentleman from [place] who has longstanding paraplegia with sensory and motor deficit in both lower extremities stemming from a fall off of a roof. He leaned forward and fell out of his wheelchair and broke his left leg today. He does have a history of proximal tibia fracture on that left side and had associated compartment syndrome with that that required fasciotomies. In the emergency room, they suspected that they had a pressure of 120 in the left anterior compartment. Orthopedics was consulted. IMAGING STUDIES: Distal metaphysis tibia fracture mildly angulated. Proximal fibula fracture. Diffuse osteopenia. Reviewed ER health summary and notes which include medical/surgical history, medications and social history. CLINICAL EXAMINATION: He is alert and cooperative. Mood and affect appropriate. He is not in distress. He is not diaphoretic and he is not hypertensive. Both lower extremities have significant equinus deformity. Left lower extremity grossly no deformity. The palpation around the leg on the left side with discomfort. He does have some preserved motor in the proximal hip muscles. No effusion at the knee. No effusion at the ankle. No significant edema. No open wounds. No ecchymosis. Palpation of the compartments seem relatively soft. I examined the A-line set up. I am quite convinced that the pressure sensor is on the pressure bag side of the apparatus and strongly suspicious that the A-line set up is misassembled. In any event, when I reverse the pressure sensor and check the compartment pressure, the A-line set up measured it to be about 40. By this time, the ER had located the [place] compartment sensor. That reflected compartment pressures that ranged from 25-40 mmHg checking anterolateral, anterior, posterior and deep posterior compartments. The patient tolerated this well. CLOSED REDUCTION AND CASTING: I placed a long-leg cast, held the fracture in reduction, cast slightly bent at the knee. Post casting x-rays reveal reasonable reduction. IMPRESSION: Tibia fracture left lower extremity. No compartment syndrome. RECOMMENDATIONS: I talked to the patient about different treatment options. In my opinion, operative fixation of the fracture could be a consideration versus treatment in a cast. In any event, the patient plans to go back to [place] within the first one week of this encounter, so I think that in terms of operative fixation, we would both be more comfortable if he stuck with the surgeons in [facility] who he is entirely happy with. FOLLOWUP: I would like to see the patient in several days to make sure that the cast is not impinging. In fact, because of his sensory deficit in the lower extremity, I will probably remove the cast and place a new cast at that point. That can be accomplished in the office. This was explained to the patient and he is comfortable with our plan.
== END 2016-11-08 03:03 | disposition home or self-care (01) ==
LOC: M ED 21:42
DX: S82.102A Unspecified fracture of upper end of left tibia, initial encounter for closed fracture (principal); S82.832A Other fracture of upper and lower end of left fibula, initial encounter for closed fracture; T79.A22A Traumatic compartment syndrome of left lower extremity, initial encounter; W05.0XXA Fall from non-moving wheelchair, initial encounter; Y92.018 Other place in single-family (private) house as the place of occurrence of the external cause; Y93.9 Activity, unspecified; Y99.9 Unspecified external cause status; Z79.01 Long term (current) use of anticoagulants; Z79.899 Other long term (current) drug therapy